=== PATIENT | female | born 1970 | race Caucasian/White ===

== ENCOUNTER 2017-12-20 13:32 | Emergency (ER) | payer OTHER ==
[~2017-12-20] VITALS: Ht 160 cm; Wt 80.5 kg
[2017-12-20 13:35] VITALS: Ht 160 cm; Wt 80.5 kg
[2017-12-20 16:30] VITALS: BP 128/72
== END 2017-12-20 16:30 | disposition home or self-care (01) ==
LOC: ED 13:32
DX: M54.5 Low back pain (principal)
CPT/HCPCS: J1885

== ENCOUNTER 2019-05-26 20:41 | Emergency (ER) | payer MEDICAID ==
[~2019-05-26] VITALS: Ht 160 cm; Wt 107.0 kg
[2019-05-26 20:47] VITALS: Ht 160 cm; Wt 107.0 kg
[2019-05-26 22:28] VITALS: BP 147/86
== END 2019-05-26 22:28 | disposition home or self-care (01) ==
LOC: ED 20:41
DX: S09.8XXA Other specified injuries of head, initial encounter (principal); M54.2 Cervicalgia; M54.6 Pain in thoracic spine; M25.511 Pain in right shoulder; Z90.49 Acquired absence of other specified parts of digestive tract; Z98.890 Other specified postprocedural states; W01.0XXA Fall on same level from slipping, tripping and stumbling without subsequent striking against object, initial encounter; Y93.89 Activity, other specified; Y92.89 Other specified places as the place of occurrence of the external cause; Y99.8 Other external cause status
CPT/HCPCS: J1885